=== PATIENT | female | born 1965 | race Caucasian/White ===

== ENCOUNTER 2017-09-27 21:08 | Emergency (ER) | payer OTHER ==
[2017-09-27] MEDS ORDERED: NS 0.9% 1000 ML* 1,000 ML IV ONE (21:30)
[2017-09-27] MEDS ORDERED: Ketorolac INJ* 30 MG/ML 1 ML VIAL IV PUSH ONE (21:31)
[2017-09-27] MEDS ORDERED: diPHENhydraMINE IV* 50 MG/ML 1 ml VIAL (BENADRYL) SLOW PUSH ONE (21:31)
[2017-09-27] MEDS ORDERED: Metoclopramide IV* 5 MG/ML 2 ML VIAL IV SLOW PU ONE (21:31)
[2017-09-27 21:53] LABS: ABS Basophils 0 10^3/ul (0-0.2); ABS Eosinophils 0 10^3/ul (0-0.6); ABS Lymphocytes 0.8 10^3/ul (1.0-4.8); ABS Monocytes 0.4 10^3/ul (0-0.8); ABS Neutrophils 1.2 10^3/ul (1.5-7.7); ABS Nucleated RBC 0 10^3/ul; Eosinophil % 0.6 % (0-6); Hematocrit 39 % (35-47); Hemoglobin 13.6 g/dl (12.0-16.0); Lymphocyte % 32.6 % (25-47); Mean Corpuscular HGB Conc 35 g/dl (31-36); Mean Corpuscular Hemoglobin 31 pg (27-31); Mean Corpuscular Volume 91 fL (80-97); Mean Platelet Volume 7.6 um3 (7.4-10.4); Nucleated Red Blood Cells % 0.1; Platelet Count 118 10^3/ul (150-450); Red Blood Count 4.34 10^6/ul (4.00-5.40); Red Cell Distribution Width 13 % (10.5-15); White Blood Count 2.4 10^3/ul (3.5-10.8)
[2017-09-27 22:14] LABS: EGFR Non-African American 72.6 (>60)
[2017-09-27] MEDS ORDERED: DOXYcycline CAP(*) 100 MG PO ONE (22:42)
--- NOTE | 2017-09-27 23:04 | ED ---
Lacy Adams Jade, scribed for Beverley Parsons MD on 09/27/17 at 2137 . Headache - HPI Summary HPI Summary: Pt is a 52 y/o female who presents to the ED c/o worsening headache. She states the symptoms started 4 nights ago, and include a low-grade fever of 100.8 degrees F, pain over her left judaism, neck and joint soreness, and decreased appetite. Pt describes the head pain as a headache with shooting sharp spasm pains that last for a few seconds. She denies any photophobia, or pain with chewing. Currently the pain is rated 9/10 in severity. Pt has been taking Advil and Tylenol for the pain, and last took Tylenol this morning and 2 Advils today at 4:30. She is accompanied by her in the ED. Pt has a PMHx of sinus headaches. - History Of Current Complaint Chief Complaint: EDHeadache Stated Complaint: LT SIDE HEAD PAIN/FEVER OVER 100 Time Seen by Provider: 09/27/17 21:19 Hx Obtained From: Patient Onset/Duration: Gradual Onset, Started days ago - 4, Worse Since Currently Pain Is: Severe - 9/10 Timing: Constant, Intermittent, Lasting: - Spasms, a few seconds Character: Sharp, Typical Headache - with spasms Location of Headache: Other: - Left judaism Aggravating Factor: Nothing Allevating Factors: Nothing Associated Signs And Symptoms: Fever, Neck Pain, Other (Noted In Comments) - Decreased appetite - Allergies/Home Medications Allergies/Adverse Reactions: Allergies Allergy/AdvReac Type Severity Reaction Status Date / Time No Known Allergies Allergy Verified 09/27/17 21:14 PMH/Surg Hx/FS Hx/Imm Hx Sensory History: 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 Neurological History: Reports: Hx Headaches - Sinus Infectious Disease History: No Infectious Disease History: Denies: Traveled Outside the [place] in Last 30 Days - Family History Known Family History: Positive: Other - Headaches (daughter) - Social History Alcohol Use: Occasionally Substance Use Type: Reports: None Smoking Status (MU): Never Smoked Tobacco Review of Systems Positive: Fever Negative: Photophobia Positive: Other - Decreased appetite Positive: Arthralgia, Myalgia - Neck pain, Other - NEGATIVE: pain with chewing Positive: Headache All Other Systems Reviewed And Are Negative: Yes Physical Exam - Summary Physical Exam Summary: VITAL SIGNS: Reviewed. GENERAL: Patient is a well-developed and nourished FEMALE who is lying comfortable in the stretcher. Patient is not in any acute respiratory distress. HEAD AND FACE: No signs of trauma. No ecchymosis, hematomas or skull depressions. Mild tenderness over left judaism. EYES: PERRLA, EOMI x 2, No injected conjunctiva, no nystagmus. EARS: Hearing grossly intact. Ear canals and tympanic membranes are within normal limits. MOUTH: Oropharynx within normal limits. NECK: Supple, trachea is midline, no adenopathy, no JVD, no carotid bruit, no c- spine tenderness, neck with full ROM. CHEST: Symmetric, no tenderness at palpation LUNGS: Clear to auscultation bilaterally. No wheezing or crackles. CVS: Regular rate and rhythm, S1 and S2 present, no murmurs or gallops appreciated. ABDOMEN: Soft, non-tender. No signs of distention. No rebound no guarding, and no masses palpated. Bowel sounds are normal. EXTREMITIES: FROM in all major joints, no edema, no cyanosis or clubbing. NEURO: Alert and oriented x 3. No acute neurological deficits. Speech is normal and follows commands. SKIN: Dry and warm Triage Information Reviewed: Yes Vital Signs On Initial Exam: Initial Vitals Temp Pulse Resp BP Pulse Ox 99.4 F 79 20 148/79 96 09/27/17 21:11 09/27/17 21:11 09/27/17 21:11 09/27/17 21:11 09/27/17 21:11 Vital Signs Reviewed: Yes Diagnostics - Vital Signs Vital Signs Temp Pulse Resp BP Pulse Ox 09/27/17 21:11 99.4 F 79 20 148/79 96 - Laboratory Lab Results: Lab Results 09/27/17 09/27/17 Range/Units 21:38 21:38 WBC 2.4 L (3.5-10.8) 10^3/ul RBC 4.34 (4.00-5.40) 10^6/ul Hgb 13.6 (12.0-16.0) g/dl Hct 39 (35-47) % MCV 91 (80-97) fL MCH 31 (27-31) pg MCHC 35 (31-36) g/dl RDW 13 (10.5-15) % Plt Count 118 L (150-450) 10^3/ul MPV 7.6 (7.4-10.4) um3 Neut % (Auto) 50.5 (38-83) % Lymph % (Auto) 32.6 (25-47) % [place] % (Auto) 15.5 H (0-7) % Eos % (Auto) 0.6 (0-6) % Baso % (Auto) 0.8 (0-2) % Absolute Neuts (auto) 1.2 L (1.5-7.7) 10^3/ul Absolute Lymphs (auto) 0.8 L (1.0-4.8) 10^3/ul Absolute Monos (auto) 0.4 (0-0.8) 10^3/ul Absolute Eos (auto) 0 (0-0.6) 10^3/ul Absolute Basos (auto) 0 (0-0.2) 10^3/ul Absolute Nucleated RBC 0 10^3/ul Nucleated RBC % 0.1 ESR 32 H (0-30) mm/Hr Sodium 136 (135-145) mmol/L Potassium 4.2 (3.5-5.0) mmol/L Chloride 102 (101-111) mmol/L Carbon Dioxide 26 (22-32) mmol/L Anion Gap 8 (2-11) mmol/L BUN 14 (6-24) mg/dL Creatinine 0.82 (0.51-0.95) mg/dL Est GFR ( Amer) 87.9 (>60) Est GFR (Non-Af Amer) 72.6 (>60) BUN/Creatinine Ratio 17.1 (8-20) Glucose 121 H (70-100) mg/dL Calcium 9.4 (8.6-10.3) mg/dL Total Bilirubin 1.20 H (0.2-1.0) mg/dL AST 129 H (13-39) U/L ALT 237 H (7-52) U/L Alkaline Phosphatase 170 H (34-104) U/L C-Reactive Protein 43.47 H (<8.01) mg/L Total Protein 7.7 (6.4-8.9) g/dL Albumin 4.2 (3.2-5.2) g/dL Globulin 3.5 (2-4) g/dL Albumin/Globulin Ratio 1.2 (1-3) Result Diagrams: 09/27/17 21:38 09/27/17 21:38 Lab Statement: Any lab studies that have been ordered have been reviewed, and results considered in the medical decision making process. Re-Evaluation - Re-Evaluation First Eval Re-Evaluation Time: 12:45 Change: Improved Comment: Pt is feeling better. Headache Course/Dx - Course Course Of Treatment: Time:2248. Patient feels better after she was medicated in the emergency room. Patient was found to have thrombocytopenia, neutropenia , alkaline phosphatase and transaminases, she did have a low-grade fever at home. Further discussion with patient , they stated that he do have deetrs around their house. I do think patient most likely does have Ehrchliosis. She'll be treated with doxycycline for 10 days, Motrin as needed for her symptoms. Should follow up with private M.D. in one to 2 days. Lyme titer, ehrichia titers are pending. - Diagnoses Provider Diagnoses: Ehrlichiosis Discharge - Sign-Out/Discharge Documenting (check all that apply): Discharge/Admit/Transfer - Discharge - Discharge Plan Condition: Stable Disposition: HOME Prescriptions: DOXYcycline CAP(*) [DOXYcycline 100MG CAP(*)] 100 mg PO BID #20 cap Ibuprofen TAB* [Motrin TAB* 800 MG] 800 mg PO Q6H PRN #30 tab PRN Reason: Fever/Pain Patient Education Materials: Tick Bite (ED) Referrals: [facility] [place] [facility] REFERRAL [Outside] - 2 Days Additional Instructions: RETURN TO THE EMERGENCY DEPARTMENT FOR CHANGING OR WORSENING SYMPTOMS The documentation as recorded by the Lacy rees Jade accurately reflects the service I personally performed and the decisions made by me, Beverley Parsons MD.
[2017-09-28 00:24] VITALS: BP 125/79
== END 2017-09-27 23:25 | disposition home or self-care (01) ==
LOC: ED 21:08
DX: A77.40 Ehrlichiosis, unspecified (principal)
CPT/HCPCS: 36415; 80053; 85025; 85652; 86140; 86617; 86618; 86666; 86757; 96374; 96375; 99282; A9270-GY; J1200; J1885; J2765